=== PATIENT | male | born 1950 | race Caucasian/White ===

== ENCOUNTER 2021-03-23 23:07 | Emergency (ER) | payer OTHER, SELFPAY ==
[2021-03-23 23:07] VITALS: BP 183/90; PULSE 75; RESP 16; TEMP 37; O2SAT 98; BMI 29.3
--- NOTE | 2021-03-23 23:21 | EDS_ITS ---
HPI History of Present Illness Chief Complaint: Complaint Detail of Chief Complaint: Dysuria and urinary retention Informant: patient Narrative Narrative: Patient presents to the emergency department with complaint of urinary retention and dysuria. Patient states that his symptoms started this morning. Patient states that he thinks he may have a UTI. He denies fever or chills or sweats. Patient tells me he has a history of BPH. Patient denies recent illness otherwise. He was complaining of abdominal discomfort but on my evaluation the nurses had already placed a Gentile catheter after a bladder scan showed over 1000 cc of urine in the bladder. Currently his abdominal discomfort is significantly improved. Patient has history of prior appendectomy and partial colon resection due to diverticulitis. PFSH PFSH Medical History no medical history Home Medications ibuprofen [Advil] 200 mg PO Q6H PRN 03/23/21 [History Last Taken Unknown] multivitamin 1 tab PO DAILY 03/23/21 [History Last Taken Unknown] phenazopyridine [Pyridium] 200 mg PO TID #6 tab 03/24/21 [Rx Last Taken Unknown] sulfamethoxazole-trimethoprim 1 tab PO BID #14 tablet 03/24/21 [Rx Last Taken Unknown] Allergy/AdvReac Type Severity Reaction Status Date / Time morphine AdvReac Vomiting Verified 03/23/21 23:43 Social History Smoking Status: Never smoker ROS [facility] ED Constitutional Constitutional ED: Reports systems reviewed and no addt'l complaints, except as documented; Denies body ache(s), change in weight or chills Eyes Eyes: Denies acute decrease in peripheral vision, change in vision, double vision or loss of vision ENT ENT ED: Reports none; Denies ear pain, lip swelling, loss taste/smell, neck pain, otalgia or sore throat Cardiovascular Cardiovascular: Reports none; Denies abdominal pain, chest pain with activity, leg edema, lightheadedness, palpitations, rapid heart rate or syncope Respiratory/Chest Respiratory/Chest: Reports none; Denies change in mental status, dry cough, dyspnea, hemoptysis, shortness of breath at rest or shortness of breath with exertion Gastrointestinal Gastrointestinal: Reports none and abdominal pain; Denies change in stool character, diarrhea, hematemesis, hematochezia, melena, rectal bleeding or vomiting Genitourinary Genitourinary ED: Reports none, dysuria and other Details: Urinary retention ; Denies abdominal discomfort, anuria, genital pain or polyuria Musculoskeletal Musculoskeletal: Reports none; Denies arthralgias, back pain, difficulty wal jared, extremity pain, muscle weakness or myalgias Integumentary Reports none; Denies abscess or rash Neurologic Neurologic: Reports none; Denies abnormal gait, confusion, focal weakness, frequent falls, headache(s), loss of vision, numbness, paresthesias, radicular pain, vertigo or weakness Psychiatric Psychiatric: Reports systems reviewed and no addt'l complaints, except as documented and none; Denies behavioral changes, confusion, difficulty concentrating, hallucinations, suicidal ideation, tactile hallucinations or visual hallucinations Endocrine Endocrinology: Denies none, cold intolerance, excessive sweating, fatigue or heat intolerance Hematologic/Lymphatic Hematologic/Lymphatic: Reports none; Denies anemia, easy bleeding or easy bruising Allergic/Immunologic Allergic/Immunologic ED: Denies as per HPI, none, lip swelling, mouth swelling, throat swelling, tongue swelling or hives EXAM Physical Exam Const Vital Signs: 03/23/21 23:07 Temperature 98.6 F Temperature Source Oral Pulse Rate 75 Respiratory Rate 16 Blood Pressure 183/90 H Blood Pressure Mean 121 Pulse Ox 98 Oxygen Delivery Method Room Air Positive well nourished and well developed General Appearance ED: well developed and NAD HEENT Reports TM's clear and moist mucous membranes normocephalic and atraumatic; Negative for trauma or tenderness Tympanic Membrane ED: Yes TM's clear Eyes PERRL and EOMs intact bilaterally General Eye ED: Negative for pale conjunctiva or scleral icterus Neck no lymphadenopathy, supple and no JVD General: Negative for tenderness Chest Wall inspection of chest normal and palpation of chest normal Chest: Negative for tenderness Resp normal respiratory effort and clear to auscultation bilaterally Effort and Inspection: Negative for respiratory distress or pain with movement Auscultation: Negative for rhonchi, wheezes or diminished lung sounds Cardio regular rate, regular rhythm, S1 normal heart sound, S2 normal heart sound and no murmurs Peripheral Pulses: pulses 2+ throughout GI normal to inspection, nondistended, normoactive bowel sounds, soft to palpation, non-tender, non-distended and no masses GI Narrative: Mild suprapubic tenderness on palpation. No rebound, rigidity, or peritoneal signs. No masses palpated. Back/Spine no CVA tenderness and no thoracic nor lumbar tenderness Extremity normal to inspection General Extremety ED: Negative for edema General Extremity: Negative for edema Neuro oriented x3, CN's II-XII intact bilaterally, no sensory deficits noted and gait normal Sensorium / Orientation: awake, alert, oriented to person, oriented to place and oriented to time Motor Exam: strength 5/5 throughout and strength abnormal Psych mental status grossly normal Skin no rashes or lesions noted and no wounds MDM MDM MDM Narrative Medical decision making narrative: Patient had a Gentile catheter placed on arrival when it was noted that he had more in the 1000 cc of urine in his bladder. Lab work was unremarkable. Urinalysis showed 25-50 WBCs and rare bacteria. I did send off a urine culture. Patient was started on Bactrim and Pyridium. Patient will be given a leg bag and will be referred to urology for follow-up. Patient will be given a prescription for Bactrim and Pyridium. Lab Data Attestation: I reviewed the patient's lab results. Labs: Laboratory Results - last 24 hr 03/23/21 03/23/21 03/23/21 23:25 23:30 23:30 WBC 9.5 RBC 4.30 L Hgb 13.3 Hct 37.9 L MCV 88.1 MCH 30.9 MCHC 35.1 RDW Std Deviation 40.8 RDW Coeff of Karina 12.7 Plt Count 202 MPV 9.6 Immature Gran % (Auto) 0.200 Neut % (Auto) 73.5 H Lymph % (Auto) 16.9 L Merrick % (Auto) 8.0 Eos % (Auto) 1.1 Baso % (Auto) 0.3 Absolute Neuts (auto) 7.0 Absolute Lymphs (auto) 1.61 Nucleated RBC % 0 Sodium 133 L Potassium 3.4 L Chloride 100 Carbon Dioxide 24.0 Anion Gap 9 BUN 17 Creatinine 0.92 Estim Creat Clear Calc 72.28 Est GFR (MDRD) Af Amer 104 Est GFR (MDRD) Non-Af 86 BUN/Creatinine Ratio 18.5 Glucose 119 H Calcium 9.1 Urine Color Yellow Urine Clarity Clear Urine pH 6.0 Ur Specific [place] 1.010 Urine Protein Negative Urine Glucose (UA) Normal Urine Ketones Negative Urine Occult Blood 250 H Urine Nitrite Negative Urine Bilirubin Negative Urine Urobilinogen Normal Ur Leukocyte Esterase Negative Urine RBC 0 SEEN Urine WBC 25-50 SEEN Ur Squamous Epith Cells 0 SEEN Urine Bacteria RARE Urine Mucus 0 SEEN Discharge Plan Triage Chief Complaint: Complaint ED Provider: Antony Prescott Dx/Rx/DC Orders Clinical Impression: Acute urinary retention, Acute UTI Instructions: ED Gentile Catheter, Care, ED Urinary Retention, Male, ED Urinary Tract Infections in Men Prescriptions: New sulfamethoxazole-trimethoprim [sulfamethoxazole-trimethoprim] 1 TABLET tablet 1 tab PO BID Qty: 14 RF: 0 phenazopyridine [Pyridium] 200 mg tablet 200 mg PO TID Qty: 6 RF: 0 No Action multivitamin Tablet 1 tab PO DAILY RF: 0 ibuprofen [Advil] 200 mg Tablet 200 mg PO Q6H PRN (Reason: Mild Pain (Scale Score 1-4)) RF: 0 Primary Care Provider: Sam Palmer NP Referrals: Danilo Walsh MD [STAFF PHYSICIAN] - 3-5 Days Sam Palmer NP, ASSISTANT FINANCIAL ACCOUNTANT-C [Primary Care Provider] - Disposition Disposition: Home, Self Care
[2021-03-23 23:49] LABS: Absolute Lymphocyte Count 1.61 X10^3/uL (0.83-4.51); Basophil# 0.03 X10^3/uL; Basophil% 0.3 % (0-1); Eosinophils% 1.1 % (0-5); Hematocrit 37.9 % (40-54); Hemoglobin 13.3 g/dL (13.0-16.5); Lymphocyte # 1.61 X10^3/ul (0.83-4.51); Lymphocyte % 16.9 % (19-41); Mean Corp Hgb Conc 35.1 g/dL (32-36); Mean Corpuscular Hgb 30.9 pg (27.0-32.0); Mean Corpuscular Volume 88.1 fL (80-94); Mean Platelet Vol. 9.6 fl (6.2-12.0); Monocyte# 0.76 X10^3/uL; NRBC Flagged by Analyzer 0 % (0-5); Neutrophil % 73.5 % (47-70); Platelet Count 202 K/mm3 (150-450); RBC Distribution Width CV 12.7 % (11.6-14.6); RBC Distribution Width SD 40.8 fl (35.1-43.9); White Blood Count 9.5 K/mm3 (4.4-11.0)
[2021-03-23 23:59] LABS: Mucous, Urine 0 SEEN /hpf (<or=2+); Red Blood Cells-Urine 0 SEEN /hpf (0-5); Squamous Epithelial Cells - UA 0 SEEN /hpf (0-5)
[2021-03-24] LABS: Color, Urine Yellow (Yellow); Glucose, Dipstick Normal (Normal); Ketone-Dipstick Negative (Negative); Leukocyte Esterase-Dipstick Negative /ul (Negative); Nitrite-Dipstick Negative (Negative); Occult Blood-Urine 250 /ul (Negative); Protein-Dipstick Negative (Negative); Urine Bilirubin Dipstick Negative (Negative); Urine Clarity Clear (Clear); Urine Urobilinogen Normal (Normal)
[2021-03-24 00:05] LABS: Anion Gap 9 (5-15); BUN 17 mg/dL (7-18); BUN/Creat Ratio 18.5 RATIO (10-20); Calcium,Total 9.1 mg/dL (8.5-10.1); Chloride 100 mmol/L (98-107); Creatinine, Serum 0.92 mg/dL (0.70-1.30); EST Glomerular Filtration Rate 86 mL/min (>60); Est Glom Filt Rate - Afr Amer 104 mL/min (>60); Estimated Creatinine Clearance 72.28 ml/min; Glucose 119 mg/dL (74-106); Potassium 3.4 mmol/L (3.5-5.1); Sodium Level 133 mmol/L (136-145)
[2021-03-24 01:03] LABS: Bacteria RARE /hpf (None Seen); White Blood Cells 25-50 SEEN /hpf (0-5)
[2021-03-24] MEDS: Phenazopyridine 95 MG Tablet 190 MG PO (01:26)
[2021-03-24] MEDS: Smz/Tmp Ds Tablet 1 TABLET PO (01:26)
[2021-03-24 01:28] VITALS: BP 132/70; PULSE 78; RESP 17; O2SAT 98
== END 2021-03-24 01:49 | disposition home or self-care (01) ==
PROVIDERS: Emergency Provider Emergency Medicine; PCP Nurse Practitioner Family
DX: N39.0 Urinary tract infection, site not specified (principal); N40.1 Benign prostatic hyperplasia with lower urinary tract symptoms; R33.8 Other retention of urine; Z87.19 Personal history of other diseases of the digestive system; Z90.49 Acquired absence of other specified parts of digestive tract
CPT/HCPCS: 51702; 80048; 81001; 85025; 87086; 99285; A4216

== ENCOUNTER 2021-04-01 17:28 | Emergency (ER) | payer OTHER, SELFPAY ==
[2021-04-01 17:29] VITALS: BP 133/84; PULSE 76; RESP 18; TEMP 36.8; O2SAT 96; BMI 27.3
[2021-04-01 17:48] LABS: Bacteria 0 SEEN /hpf (None Seen); Mucous, Urine 0 SEEN /hpf (<or=2+); Red Blood Cells-Urine 0 SEEN /hpf (0-5); Squamous Epithelial Cells - UA 0 SEEN /hpf (0-5)
[2021-04-01 17:56] LABS: Color, Urine Yellow (Yellow); Glucose, Dipstick Normal (Normal); Ketone-Dipstick Negative (Negative); Leukocyte Esterase-Dipstick 500 /ul (Negative); Nitrite-Dipstick Negative (Negative); Occult Blood-Urine 10 /ul (Negative); Protein-Dipstick Negative (Negative); Urine Bilirubin Dipstick Negative (Negative); Urine Clarity Clear (Clear); Urine Urobilinogen Normal (Normal)
[2021-04-01 18:11] LABS: White Blood Cells 10-25 SEEN /hpf (0-5)
[2021-04-01 18:31] VITALS: BP 133/84; PULSE 76; RESP 18; TEMP 36.8; O2SAT 96
--- NOTE | 2021-04-01 18:49 | EDS_ITS ---
HPI History of Present Illness Chief Complaint: Complaint Informant: patient Onset/Context/Timing Onset: Yesterday Narrative Narrative: Patient presents secondary to decreased urination. He was recently treated for UTI and enlarged prostate with a Gentile catheter. This was removed yesterday. Patient states today has noticed more difficulty urinating. [facility] Medical History Urinary retention Home Medications ibuprofen [Advil] 200 mg PO Q6H PRN 03/23/21 [History Last Taken Unknown] multivitamin 1 tab PO DAILY 03/23/21 [History Last Taken Unknown] phenazopyridine [Pyridium] 200 mg PO TID #6 tab 03/24/21 [Rx Last Taken Unknown] sulfamethoxazole-trimethoprim 1 tab PO BID #14 tablet 03/24/21 [Rx Last Taken Unknown] cephalexin 500 mg PO Q6H 7 Days #28 cap 04/01/21 [Rx Last Taken Unknown] Allergy/AdvReac Type Severity Reaction Status Date / Time morphine AdvReac Vomiting Verified 04/01/21 17:31 Social History Smoking Status: Never smoker ROS ROS ED Constitutional Constitutional ED: Denies chills or fever(s) Eyes Eyes: Denies change in vision ENT ENT ED: Denies sore throat Cardiovascular Cardiovascular: Denies chest pain Respiratory/Chest Respiratory/Chest: Denies cough or dyspnea Gastrointestinal Gastrointestinal: Reports abdominal pain; Denies diarrhea, nausea or vomiting Genitourinary Genitourinary ED: Reports other Details: Difficulty passing urine ; Denies dysuria Musculoskeletal Musculoskeletal: Denies back pain Integumentary Denies rash Neurologic Neurologic: Denies headache(s) or weakness Allergic/Immunologic Allergic/Immunologic ED: Denies urticaria EXAM Physical Exam Const Vital Signs: 04/01/21 17:29 04/01/21 18:31 04/01/21 19:19 Temperature 98.3 F 98.3 F 98.1 F Temperature Source Temporal Temporal Temporal Pulse Rate 76 76 68 Respiratory Rate 18 18 16 Blood Pressure 133/84 H 133/84 H 126/82 H Blood Pressure Mean 100 100 96 Pulse Ox 96 96 96 Oxygen Delivery Method Room Air Room Air Room Air Positive well nourished and well developed General Appearance ED: well developed Eyes PERRL and EOMs intact bilaterally Neck supple Chest Wall inspection of chest normal and palpation of chest normal Resp normal respiratory effort and clear to auscultation bilaterally Cardio regular rate and regular rhythm GI Palpation: soft and tender suprapubic Extremity normal to inspection Neuro oriented x3 Sensorium / Orientation: alert Psych mental status grossly normal Skin no rashes or lesions noted MDM MDM MDM Narrative Medical decision making narrative: Patient was able to give a small urine sample on arrival. Bladder scan performed reveals nearly 1000 cc of urine. Lab Data Labs: Laboratory Results - last 24 hr 04/01/21 17:42 Urine Color Yellow Urine Clarity Clear Urine pH 6.0 Ur Specific [place] 1.010 Urine Protein Negative Urine Glucose (UA) Normal Urine Ketones Negative Urine Occult Blood 10 H Urine Nitrite Negative Urine Bilirubin Negative Urine Urobilinogen Normal Ur Leukocyte Esterase 500 H Urine RBC 0 SEEN Urine WBC 10-25 SEEN Ur Squamous Epith Cells 0 SEEN Urine Bacteria 0 SEEN Urine Mucus 0 SEEN Treatment and Re-Evaluation Comments:: Gentile catheter placed by nursing staff without difficulty. 1200 cc of urine returned. Urinalysis does show 10-25 white cells with no bacteria. With patient having catheter replaced and will put him on Keflex. He is currently on Flomax from Dr. Walsh. Patient encouraged to follow-up Dr. Walsh and is sent home with leg bag. Discharge Plan Triage Chief Complaint: Complaint ED Provider: Bethany Gomez Dx/Rx/DC Orders Clinical Impression: Urinary retention, UTI (urinary tract infection) Instructions: ED Gentile Catheter, Care, ED Urinary Retention, Male Prescriptions: New cephalexin 500 mg capsule 500 mg PO Q6H 7 Days Qty: 28 RF: 0 No Action multivitamin Tablet 1 tab PO DAILY RF: 0 ibuprofen [Advil] 200 mg Tablet 200 mg PO Q6H PRN (Reason: Mild Pain (Scale Score 1-4)) RF: 0 sulfamethoxazole-trimethoprim [sulfamethoxazole-trimethoprim] 1 TABLET tablet 1 tab PO BID Qty: 14 RF: 0 phenazopyridine [Pyridium] 200 mg tablet 200 mg PO TID Qty: 6 RF: 0 Primary Care Provider: Sam Palmer NP Referrals: Danilo Walsh MD [STAFF PHYSICIAN] - 1 Week Sam Palmer NP, CONTENT MANAGER-C [Primary Care Provider] - Disposition Disposition: Home, Self Care Discharge Date/Time: 04/01/21 20:46
[2021-04-01] MEDS: Lidocaine Jelly 2% 20 ML Syringe (URO-JET) 20 APPLIC TOPICAL (18:54)
[2021-04-01 19:19] VITALS: BP 126/82; PULSE 68; RESP 16; TEMP 36.7; O2SAT 96
[2021-04-01] MEDS: Cephalexin 250 MG Capsule 500 MG PO (20:33)
--- NOTE | 2021-04-01 20:46 | ED.RN ---
very pleasant. meds to beds. pt and to waiting room.
== END 2021-04-01 20:46 | disposition home or self-care (01) ==
PROVIDERS: Emergency Provider Emergency Medicine; PCP Nurse Practitioner Family
DX: N39.0 Urinary tract infection, site not specified (principal); Z87.440 Personal history of urinary (tract) infections
CPT/HCPCS: 51702; 81001; 87086; 99284

== ENCOUNTER → 2023-04-29 | Outpatient (CLI) | payer OTHER, SELFPAY ==
[2023-04-29 17:49] LABS: PSA,Total - Annual Screen 0.84 ng/mL (0.00-4.00)
== END | disposition home or self-care (01) ==
PROVIDERS: PCP Nurse Practitioner Family; Visit Provider Urology
DX: Z12.5 Encounter for screening for malignant neoplasm of prostate (principal)
CPT/HCPCS: 36415; 84153; G0103

== ENCOUNTER → 2024-04-27 | Outpatient (CLI) | payer OTHER, SELFPAY | END | disposition home or self-care (01) | PROVIDERS: PCP Nurse Practitioner Family; Referring Provider Urology; Visit Provider Urology | DX: Z12.5 Encounter for screening for malignant neoplasm of prostate (principal) | CPT/HCPCS: 36415; 84153; G0103 ==

== ENCOUNTER → 2025-04-30 | Outpatient (CLI) | payer OTHER, SELFPAY ==
[2025-04-30 15:02] LABS: PSA,Total- Diagnostic 1.32 ng/mL (0.00-4.00)
== END | disposition home or self-care (01) ==
LOC: LAB 13:54
PROVIDERS: PCP Nurse Practitioner Family; Referring Provider Nurse Practitioner; Visit Provider Nurse Practitioner
DX: Z12.5 Encounter for screening for malignant neoplasm of prostate (principal)
CPT/HCPCS: 36415; 84153